=== PATIENT | male | born 1985 | race Caucasian/White ===

== ENCOUNTER 2018-08-10 20:50 | Emergency (ER) | payer OTHER ==
[~2018-08-10] VITALS: Ht 175.3 cm; Wt 84.1 kg
[2018-08-10 20:56] VITALS: TEMP 98.3
[2018-08-10 21:38] LABS: BASO # 0.1 (0.0-0.2); BASO % 0.8 % (0.0-2.0); EOS # 0.9 (0.0-0.7); EOS % 11.1 % (0-4.0); GRAN # 3.7 (1.4-6.5); GRAN % 46.1 % (42.2-75.2); HEMATOCRIT 45.5 % (42.0-52.0); HEMOGLOBIN 15.3 g/dl (13.5-18.0); LYMPH # 2.5 (1.2-3.4); LYMPH % 31.9 % (20.0-51.0); MEAN CELL VOLUME 90 fl (80.0-100.0); MEAN CORPUSCULAR HEMOGLOBIN 30 pg (27.0-31.0); MEAN CORPUSCULAR HGB CONC 34 g/dl (33.0-37.0); MEAN PLATELET VOLUME 9.3 fl (7.4-10.4); MONO # 0.8 (0.1-0.6); MONO % 9.6 % (1.7-9.3); PLATELET COUNT 198 K/mm3 (130-400); RED BLOOD COUNT 5.05 M/mm3 (4.20-5.60); REDCELL DISTRIBUTION WIDTH-CV 12.7 % (11.5-14.5)
[2018-08-10 21:43] LABS: COLLECTION METHOD CLEAN CATCH
[2018-08-10 21:48] LABS: ALBUMIN 4.3 gm/dL (3.5-5.0); BILIRUBIN,TOTAL 0.4 mg/dL (0.0-1.0); CALCIUM 9.5 mg/dL (8.4-10.2); CREATININE, serum 0.98 mg/dL (0.66-1.25); POTASSIUM 3.9 mmol/L (3.4-5.0); TOTAL PROTEIN 7.3 gm/dL (6.4-8.2)
[2018-08-10 21:51] LABS: MUCOUS Present /lpf; PH 6 (5-8); SQUAMOUS EPITHELIAL None Seen /hpf; URINE APPEARANCE Clear; URINE BACTERIA None Seen /hpf; URINE BILIRUBIN Negative (NEGATIVE); URINE BLOOD 2+ (NEGATIVE); URINE COLOR Straw; URINE GLUCOSE Negative (NEGATIVE); URINE KETONE Negative (NEGATIVE); URINE LEUKOCYTE ESTERASE Negative (NEGATIVE); URINE NITRATE Negative (NEGATIVE); URINE PROTEIN(semi-quant) Negative (NEGATIVE); URINE RBC 0-2 /hpf; URINE UROBILINOGEN Negative (NEGATIVE); URINE WBC 0-2 /hpf
[2018-08-10] MEDS ORDERED: ZOFRAN 4MG T4 MG/TAB PO (22:34)
[2018-08-10] MEDS ORDERED: FLOMAX 0.40.4 MG/CAP PO (22:34)
[2018-08-10 23:02] VITALS: BP 142/86; PULSE 71
== END 2018-08-10 23:21 | disposition home or self-care (01) ==
LOC: COL.ER 20:50 → EDSEX 20:51 → COL.ER 23:21
PROVIDERS: Emergency Medicine
DX: N20.1 Calculus of ureter (principal); N23 Unspecified renal colic; Z87.442 Personal history of urinary calculi
CPT/HCPCS: J1885; J7030